=== PATIENT | female | born 1950 | race Caucasian/White ===

== ENCOUNTER 2017-12-15 10:09 | Outpatient (CLI) | payer MEDICARE, OTHER ==
[~2017-12-15] VITALS: Ht 152.4 cm; Wt 54.5 kg
[2017-12-15 10:40] VITALS: Ht 152.4 cm; Wt 54.5 kg
== END 2017-12-15 12:08 | disposition home or self-care (01) ==
LOC: D.OPS 10:09
DX: M81.0 Age-related osteoporosis without current pathological fracture (principal)

== ENCOUNTER → 2017-12-21 18:25 | Outpatient (CLI) | payer MEDICARE, OTHER ==
[2017-12-15 10:40] VITALS: BMI 23.4
== END | disposition home or self-care (01) ==
LOC: D.MAMMO 11:30
DX: Z85.3 Personal history of malignant neoplasm of breast (principal)

== ENCOUNTER → 2018-06-15 12:05 | Outpatient (CLI) | payer MEDICARE, OTHER ==
[~2018-06-15] VITALS: Ht 152.4 cm; Wt 53.6 kg
[2018-06-15 13:07] VITALS: BP 118/70; Ht 152.4 cm; Wt 53.6 kg
== END | disposition home or self-care (01) ==
LOC: D.OPS 12:05
DX: M81.0 Age-related osteoporosis without current pathological fracture (principal)

== ENCOUNTER → 2018-12-20 17:31 | Outpatient (CLI) | payer MEDICARE ==
[2018-06-15 13:07] VITALS: BMI 23.0
== END | disposition home or self-care (01) ==
LOC: D.MAMMO 14:45
DX: Z12.31 Encounter for screening mammogram for malignant neoplasm of breast (principal)

== ENCOUNTER 2018-12-21 11:45 | Outpatient (CLI) | payer MEDICARE, OTHER ==
[~2018-12-21] VITALS: Ht 152.4 cm; Wt 54.5 kg
[2018-12-21 12:12] VITALS: BP 136/78; Ht 152.4 cm; Wt 54.5 kg
== END 2018-12-21 12:19 | disposition home or self-care (01) ==
LOC: D.OPS 11:45
DX: M81.0 Age-related osteoporosis without current pathological fracture (principal)

== ENCOUNTER 2019-06-22 12:20 | Outpatient (CLI) | payer MEDICARE, OTHER ==
[~2019-06-22] VITALS: Ht 152.4 cm; Wt 52.3 kg
[2019-06-22 12:36] VITALS: BP 132/71; Ht 152.4 cm; Wt 52.3 kg
== END 2019-06-22 12:53 | disposition home or self-care (01) ==
LOC: D.OPS 12:20
PROVIDERS: ATTEND Family Medicine
DX: M81.0 Age-related osteoporosis without current pathological fracture (principal)

== ENCOUNTER 2020-01-26 10:00 | Outpatient (CLI) | payer MEDICARE, OTHER ==
[2019-12-27 13:01] VITALS: BMI 24.4
== END 2020-01-26 11:00 | disposition home or self-care (01) ==
LOC: D.MAMMO 10:00
PROVIDERS: ATTEND Nurse Practitioner Family
DX: Z12.31 Encounter for screening mammogram for malignant neoplasm of breast (principal)

== ENCOUNTER 2020-07-03 10:33 | Outpatient (CLI) | payer MEDICARE, OTHER ==
[~2020-07-03] VITALS: Ht 152.4 cm; Wt 49.5 kg
[2020-07-03 10:51] VITALS: BP 136/72; Ht 152.4 cm; Wt 49.5 kg
--- NOTE | 2020-07-03 10:59 | NUR ---
PT DC INSTRUCTIONS REVIEWED, PT VERBALIZES UNDERSTANDING.
--- NOTE | 2020-07-03 11:00 | NUR ---
PT LEAVING OPS AT THIS TIME, AMBULATORY, NAD NOTED.
== END 2020-07-03 11:00 | disposition home or self-care (01) ==
LOC: D.OPS 10:33
PROVIDERS: ATTEND Family Medicine
DX: M81.0 Age-related osteoporosis without current pathological fracture (principal)

== ENCOUNTER → 2021-01-30 11:16 | Outpatient (CLI) | payer MEDICARE, OTHER ==
[~2021-01-30] VITALS: Ht 152.4 cm; Wt 56.8 kg
[2021-01-30 12:14] VITALS: BP 111/74; Ht 152.4 cm; Wt 56.8 kg
== END | disposition home or self-care (01) ==
LOC: D.OPS 01-07 12:00
PROVIDERS: ATTEND Nurse Practitioner Family
DX: M81.0 Age-related osteoporosis without current pathological fracture (principal)